=== PATIENT | male | born 1980 | race Caucasian/White ===

== ENCOUNTER 2018-01-24 03:10 | Observation (INO) ==
[2018-01-24] MEDS ORDERED: *HR* LORazepam 2 MG/ML VIAL IM ONE ×2 (03:37→04:24)
--- NOTE | 2018-01-24 03:57 | Emergency Department Note ---
Disposition Clinical Impression: Intractable seizure disorder Disposition: Admitted As Inpatient Condition: Good Referrals: NONE,PCP [Primary Care Provider] - Forms: ED Satisfaction Letter General Adult HPI - General Chief complaint: ED Seizure Stated complaint: multiple seizors Time Seen by Provider: 01/24/18 03:32 Source: family Mode of arrival: EMS Limitations: altered mental status Nursing Notes Reviewed: Yes Vital Signs Reviewed: Yes - History of Present Illness HPI Narrative: 37-year-old male with a history of epilepsy, hypertension, seizure disorder presents emergency department for status epilepticus. He is accompanied by his brother he states that over the last 2 days patient has had 4 seizures. Normal seizures for him are that he "spaces out for a few minutes" and then is slightly confused for no more than 2-3 minutes and is able to speak and is at his baseline. Tonight around 2 AM patient had another seizure except this time patient has been very anxious climbing around on bed, not following commands, is alert that is not able to follow any type of commands. Continue frequent sometimes A" having evaluated. Patient sees a neurologist Dr. Gant, is on Keppra and Lamictal for his seizures. According to brother he takes medications as prescribed. He states there is no alcohol or drugs house brother lives with patient. Mother does work outside the home and was at work prior to all the seizures started. Regular bowel mental status is possible he overdosed on medications, he does have a history of encephalopathy. And has an EEG that shows encephalopathy. Mother denies patient was ill prior to the start of this. States he was completely normal. 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 Pain Scale: 0 Improves with: nothing Worsens with: nothing Associated symptoms: Reports: denies other symptoms Treatments Prior to Arrival: none - Related Data Home Medications Medication Instructions Recorded Confirmed lamoTRIgine [Lamictal] 300 mg PO HS 11/18/15 11/18/15 Previous Rx's Medication Instructions Recorded levETIRAcetam [Keppra] 250 mg PO BID #60 tablet 11/18/15 LevETIRAcetam [Keppra] 500 mg PO DAILY #30 tablet 09/01/16 levETIRAcetam [Keppra] 250 mg PO BID #60 tablet 06/02/17 Allergies Allergy/AdvReac Type Severity Reaction Status Date / Time diphenhydramine Allergy See Verified 01/24/18 03:17 [From Triaminic Allergy] Comments Review of Systems: See HPI All systems ED: reviewed and negative except as stated. Review of Systems: As Per HPI Past Medical History - Past Medical History Attestation: Yes The following information was validated with the patient. Source: old records reviewed, obtained from family Medical history: Reports: seizures, other (encephalapathy) Psychiatric history: Reports: bipolar - Social History Smoking Status: Never smoker Smokeless Tobacco Status: No Alcohol use: Reports: none Drug use: Reports: none Physical Exam - General Limitations: altered mental status General appearance: alert, in no apparent distress, appears intoxicated - Head Head exam: atraumatic, normocephalic, normal inspection - Eye Eye exam: Present: PERRL. Absent: conjunctival injection - Neck Neck exam: Present: normal inspection, full ROM, trachea midline - Chest Chest inspection: Present: normal inspection, symmetric chest wall rise - Respiratory Respiratory exam: Present: normal lung sounds bilaterally - Cardiovascular Cardiovascular exam: Present: regular rate, normal rhythm, normal heart sounds - Abdominal Exam Abdominal exam: Present: soft, normal bowel sounds - Extremities Exam Extremities exam: Present: normal inspection. Absent: pedal edema - Expanded Lower Extremity Exam Neurovascular/Tendon exam: Present: normal capillary refill. Absent: pulse deficit - Neurological Exam Neurological exam: Present: alert - Expanded Neurological Exam Coma Scale Eye Opening: Spontaneous Coma Scale Motor Response: Localizes to Pain Coma Scale Verbal Response: None Coma Scale Total: 10 - Skin Skin exam: Present: warm, dry, intact, normal color Course Course Narrative: 37-year-old male with a history of epilepsy, hypertension, seizure disorder presents emergency department for status epilepticus. He is accompanied by his brother he states that over the last 2 days patient has had 4 seizures. Normal seizures for him are that he "spaces out for a few minutes" and then is slightly confused for no more than 2-3 minutes and is able to speak and is at his baseline. Tonight around 2 AM patient had another seizure except this time patient has been very anxious climbing around on bed, not following commands, is alert that is not able to follow any type of commands. Continue frequent sometimes A" having evaluated. Patient sees a neurologist Dr. Gant, is on Keppra and Lamictal for his seizures. According to brother he takes medications as prescribed. He states there is no alcohol or drugs house brother lives with patient. Mother does work outside the home and was at work prior to all the seizures started. Regular bowel mental status is possible he overdosed on medications, he does have a history of encephalopathy. And has an EEG that shows encephalopathy. Mother denies patient was ill prior to the start of this. States he was completely normal. Patient on bed with sporadic, and plan movements. Nonverbal, PEARRL, unable to follow commands. He does not appear to be postictal or in any type of seizure activity. His respirations are easy and even lungs are clear to auscultate heart rate tachycardia, afebrile. We will give Ativan 2 mg IM and reevaluate. - Reevaluation(s) Reevaluation #1: Patient is, however still continues with a sporadic movements. There is been no real change with any slightly, or. We will do another Ativan 2 mg and obtain a head CT. After Ativan Sandys ministered patient did attempt to hold still for lab draw and did fairly well, but he is still nonverbal and not able to follow to commands. We will get a head CT along with basic labs. Time: 04:50 Reevaluation #2: Patient has been calm her, attempting to follow correct commands. He is able to give me his name and birthday, unable to tell me where he is. Seems to be resting comfortably. UDS negative, urine without signs of UTI, small leukocytosis, phosphate 1.2. Head CT returned. We will replace phosphate with 0.25mmol/kg over the next 8 hours. No other acute change in physical assessment. He was slightly hypotensive earlier 90s over 60s, we did a 1 L fluid bolus, during a hypertensive area he was able to tell me his name and birthday. Rest vital signs remained stable. Improvement in hypotension during fluid resuscitation. Most likely hypertensive due to Ativan orders to keep him calm. Time: 05:58 Reevaluation #3: CT scan returns without acute changes, continue chronic health conditions of nasal cannula. Ammonia normal at 51, no signs of sepsis. Baseline mental status continues to improve, hypertension can use improved. We will treat hospitalist for admission for evaluation of altered mental status. Time: 06:23 Additional Reevaluation(s): Spoke with hospitalist who agrees for admission.--[id number] Vital Signs Temperature 0 F L 01/24/18 03:17 Pulse Rate 76 01/24/18 03:17 Respiratory Rate 20 01/24/18 03:17 Blood Pressure 138/79 01/24/18 03:17 O2 Sat by Pulse Oximetry 98 01/24/18 03:17 Temperature 98.0 F 01/24/18 04:23 Pulse Rate 96 01/24/18 06:20 Respiratory Rate 20 01/24/18 06:20 Blood Pressure 128/60 01/24/18 06:20 O2 Sat by Pulse Oximetry 96 01/24/18 06:20 Oxygen Delivery Oxygen Delivery Room Air Medical Decision Making - Medical Records Medical records reviewed: Yes I reviewed the patient's medical records. - Lab Data Lab results reviewed: Yes I reviewed the patient's lab results. Result diagrams: 01/24/18 04:32 01/24/18 04:32 Lab Results 01/24/18 01/24/18 01/24/18 Range/Units 04:32 04:32 04:32 WBC 16.7 H (4.3-11.1) K/mcL RBC 4.76 (4.19-5.50) M/mcL Hgb 13.9 (12.9-16.9) g/dL Hct 41.0 (37.5-50.1) % MCV 86.1 (83.0-100.0) fL MCH 29.2 (28.0-33.3) pg MCHC 33.9 (31.6-35.5) g/dL RDW 14.6 H (11.5-14.5) % Plt Count 358 (140-400) K/mcL MPV 10.3 (9.4-12.4) fL Immature Gran % 0.4 (0-4) % Seg Neutrophils % 88.4 % Lymphocytes % 5.9 % Monocytes % 4.8 % Eosinophils % 0.1 % Basophils % 0.4 % Neutrophils # 14.8 H (1.6-8.9) K/mcL Lymphocytes # 1.0 (0.6-4.6) K/mcL Monocytes # 0.8 (0.0-1.3) K/mcL Eosinophils # 0.0 (0.0-0.6) K/mcL Basophils # 0.1 (0.0-0.2) K/mcL Sodium 137 (136-145) mEq/L Potassium 3.7 (3.5-5.1) mEq/L Chloride 105 (98-107) mEq/L Carbon Dioxide 20 L (23-29) mEq/L BUN 14 (6-20) mg/dL Creatinine 1.04 (0.70-1.30) mg/dL Est GFR ( Amer) > 60 (> 60) Est GFR (Non-Af Amer) > 60 (> 60) BUN/Creatinine Ratio 13 (6-26) Glucose 183 H (70-105) mg/dL Calculated Osmolality 289 (280-300) Calcium 9.9 (8.6-10.3) mg/dL Phosphorus 1.2 L (2.7-4.5) mg/dL Magnesium 2.3 (1.6-2.6) mg/dL Total Bilirubin 1.0 (0.3-1.0) mg/dL AST 25 (13-39) Units/L ALT 38 (7-52) Units/L Alkaline Phosphatase 75 (34-104) Units/L Ammonia (16-53) mcmol/L Serum Total Protein 7.6 (6.4-8.9) g/dL Albumin 4.7 (3.5-5.7) g/dL Globulin 2.9 (2.4-3.5) g/dL Albumin/Globulin Ratio 1.6 (1.1-2.2) Urine Color (Yellow) Urine Clarity (Clear) Urine pH (5.0-8.0) pH Units Ur Specific [place] (1.010-1.025) Urine Protein (Neg-Trace) mg/dL Urine Glucose (UA) (Normal) mg/dL Urine Ketones (Negative) mg/dL Urine Blood (Negative) Urine Nitrite (Negative) Urine Bilirubin (Negative) Urine Urobilinogen (Normal) mg/dL Ur Leukocyte Esterase (Negative) Urine Microscopic RBC (0-3) per hpf Urine Microscopic WBC (0-3) per hpf Ur Squamous Epith Cells (None-Few) per lpf Urine Bacteria (None-Few) per hpf Hyaline Casts (None-Few) per lpf Urine Opiates Screen (Cltynr=049) ng/mL Ur Barbiturates Screen (Sdxjix=140) ng/mL Ur Phencyclidine Scrn (Cutoff=25) ng/mL Ur Amphetamines Screen (Oopahe=2205) ng/mL U Benzodiazepines Scrn (Wuvvwr=744) ng/mL Urine Cocaine Screen (Cutoff= 300) ng/mL U Marijuana (THC) Screen (Cutoff = 50) ng/mL Ethyl Alcohol < 10 (Less than 10) mg/dL 01/24/18 01/24/18 01/24/18 Range/Units 04:45 04:45 05:33 WBC (4.3-11.1) K/mcL RBC (4.19-5.50) M/mcL Hgb (12.9-16.9) g/dL Hct (37.5-50.1) % MCV (83.0-100.0) fL MCH (28.0-33.3) pg MCHC (31.6-35.5) g/dL RDW (11.5-14.5) % Plt Count (140-400) K/mcL MPV (9.4-12.4) fL Immature Gran % (0-4) % Seg Neutrophils % % Lymphocytes % % Monocytes % % Eosinophils % % Basophils % % Neutrophils # (1.6-8.9) K/mcL Lymphocytes # (0.6-4.6) K/mcL Monocytes # (0.0-1.3) K/mcL Eosinophils # (0.0-0.6) K/mcL Basophils # (0.0-0.2) K/mcL Sodium (136-145) mEq/L Potassium (3.5-5.1) mEq/L Chloride (98-107) mEq/L Carbon Dioxide (23-29) mEq/L BUN (6-20) mg/dL Creatinine (0.70-1.30) mg/dL Est GFR ( Amer) (> 60) Est GFR (Non-Af Amer) (> 60) BUN/Creatinine Ratio (6-26) Glucose (70-105) mg/dL Calculated Osmolality (280-300) Calcium (8.6-10.3) mg/dL Phosphorus (2.7-4.5) mg/dL Magnesium (1.6-2.6) mg/dL Total Bilirubin (0.3-1.0) mg/dL AST (13-39) Units/L ALT (7-52) Units/L Alkaline Phosphatase (34-104) Units/L Ammonia 51 (16-53) mcmol/L Serum Total Protein (6.4-8.9) g/dL Albumin (3.5-5.7) g/dL Globulin (2.4-3.5) g/dL Albumin/Globulin Ratio (1.1-2.2) Urine Color Yellow (Yellow) Urine Clarity Clear (Clear) Urine pH 7.0 (5.0-8.0) pH Units Ur Specific [place] 1.027 H (1.010-1.025) Urine Protein 30 H (Neg-Trace) mg/dL Urine Glucose (UA) Normal (Normal) mg/dL Urine Ketones Trace H (Negative) mg/dL Urine Blood Negative (Negative) Urine Nitrite Negative (Negative) Urine Bilirubin Negative (Negative) Urine Urobilinogen Normal (Normal) mg/dL Ur Leukocyte Esterase Negative (Negative) Urine Microscopic RBC 5-15 H (0-3) per hpf Urine Microscopic WBC 3-5 H (0-3) per hpf Ur Squamous Epith Cells Moderate H (None-Few) per lpf Urine Bacteria None Seen (None-Few) per hpf Hyaline Casts None Seen (None-Few) per lpf Urine Opiates Screen Negative (Jefrtb=850) ng/mL Ur Barbiturates Screen Negative (Qkitys=421) ng/mL Ur Phencyclidine Scrn Negative (Cutoff=25) ng/mL Ur Amphetamines Screen Negative (Hogmza=2031) ng/mL U Benzodiazepines Scrn Negative (Irtyef=114) ng/mL Urine Cocaine Screen Negative (Cutoff= 300) ng/mL U Marijuana (THC) Screen Negative (Cutoff = 50) ng/mL Ethyl Alcohol (Less than 10) mg/dL - Radiology Data Radiology results reviewed: Yes I reviewed the patient's radiology results.
[2018-01-24 04:47] LABS: Basophils # 0.1 K/mcL (0.0-0.2); Basophils % 0.4 %; Eosinophils % 0.1 %; Hemoglobin 13.9 g/dL (12.9-16.9); Immature Granulocytes % 0.4 % (0-4); Lymphocytes % 5.9 %; Mean Corpuscular HGB Conc 33.9 g/dL (31.6-35.5); Mean Corpuscular Hemoglobin 29.2 pg (28.0-33.3); Mean Corpuscular Volume 86.1 fL (83.0-100.0); Mean Platelet Volume 10.3 fL (9.4-12.4); Monocytes # 0.8 K/mcL (0.0-1.3); Monocytes % 4.8 %; Neutrophils # 14.8 K/mcL (1.6-8.9); Platelet Count 358 K/mcL (140-400); Red Blood Count 4.76 M/mcL (4.19-5.50); Red Cell Distribution Width 14.6 % (11.5-14.5); Segmented Neutrophils % 88.4 %
[2018-01-24 04:55] LABS: Bilirubin,Urine Negative (Negative); Blood,Urine Negative (Negative); Clarity,Urine Clear (Clear); Color,Urine Yellow (Yellow); Glucose,Urine (UA) Normal (Normal); Ketones,Urine Trace mg/dL (Negative); Leukocyte Esterase,Urine Negative (Negative); Nitrite,Urine Negative (Negative); Protein,Urine 30 mg/dL (Neg-Trace); Specific Gravity,Urine 1.027 (1.010-1.025); Urobilinogen,Urine Normal (Normal)
--- NOTE | 2018-01-24 04:56 | Emergency Department Note ---
Disposition Clinical Impression: Intractable seizure disorder Disposition: Admitted As Inpatient Condition: Good Referrals: NONE,PCP [Primary Care Provider] - Forms: ED Satisfaction Letter General Adult HPI - General Chief complaint: ED Seizure Stated complaint: multiple seizures Time Seen by Provider: 01/24/18 03:32 Source: family Mode of arrival: EMS Limitations: altered mental status - History of Present Illness Pain Scale: 0 Improves with: nothing Worsens with: nothing Associated symptoms: Reports: denies other symptoms Treatments Prior to Arrival: none - Related Data Home Medications Medication Instructions Recorded Confirmed lamoTRIgine [Lamictal] 300 mg PO HS 11/18/15 11/18/15 Previous Rx's Medication Instructions Recorded levETIRAcetam [Keppra] 250 mg PO BID #60 tablet 11/18/15 LevETIRAcetam [Keppra] 500 mg PO DAILY #30 tablet 09/01/16 levETIRAcetam [Keppra] 250 mg PO BID #60 tablet 06/02/17 Allergies Allergy/AdvReac Type Severity Reaction Status Date / Time diphenhydramine Allergy See Verified 01/24/18 03:17 [From Triaminic Allergy] Comments Past Medical History - Past Medical History Medical history: Reports: seizures, other (encephalapathy) Psychiatric history: Reports: bipolar - Social History Smoking Status: Never smoker Smokeless Tobacco Status: No Alcohol use: Reports: none Drug use: Reports: none Physical Exam - General Limitations: altered mental status General appearance: alert, in no apparent distress, appears intoxicated Course Vital Signs Temperature 0 F L 01/24/18 03:17 Pulse Rate 76 01/24/18 03:17 Respiratory Rate 20 01/24/18 03:17 Blood Pressure 138/79 01/24/18 03:17 O2 Sat by Pulse Oximetry 98 01/24/18 03:17 Temperature 98.0 F 01/24/18 04:23 Pulse Rate 96 01/24/18 06:20 Respiratory Rate 20 01/24/18 06:20 Blood Pressure 128/60 01/24/18 06:20 O2 Sat by Pulse Oximetry 96 01/24/18 06:20 Oxygen Delivery Oxygen Delivery Room Air Medical Decision Making - Lab Data Result diagrams: 01/24/18 04:32 01/24/18 04:32 Lab Results 01/24/18 01/24/18 01/24/18 Range/Units 04:32 04:32 04:32 WBC 16.7 H (4.3-11.1) K/mcL RBC 4.76 (4.19-5.50) M/mcL Hgb 13.9 (12.9-16.9) g/dL Hct 41.0 (37.5-50.1) % MCV 86.1 (83.0-100.0) fL MCH 29.2 (28.0-33.3) pg MCHC 33.9 (31.6-35.5) g/dL RDW 14.6 H (11.5-14.5) % Plt Count 358 (140-400) K/mcL MPV 10.3 (9.4-12.4) fL Immature Gran % 0.4 (0-4) % Seg Neutrophils % 88.4 % Lymphocytes % 5.9 % Monocytes % 4.8 % Eosinophils % 0.1 % Basophils % 0.4 % Neutrophils # 14.8 H (1.6-8.9) K/mcL Lymphocytes # 1.0 (0.6-4.6) K/mcL Monocytes # 0.8 (0.0-1.3) K/mcL Eosinophils # 0.0 (0.0-0.6) K/mcL Basophils # 0.1 (0.0-0.2) K/mcL Sodium 137 (136-145) mEq/L Potassium 3.7 (3.5-5.1) mEq/L Chloride 105 (98-107) mEq/L Carbon Dioxide 20 L (23-29) mEq/L BUN 14 (6-20) mg/dL Creatinine 1.04 (0.70-1.30) mg/dL Est GFR ( Amer) > 60 (> 60) Est GFR (Non-Af Amer) > 60 (> 60) BUN/Creatinine Ratio 13 (6-26) Glucose 183 H (70-105) mg/dL Calculated Osmolality 289 (280-300) Calcium 9.9 (8.6-10.3) mg/dL Phosphorus 1.2 L (2.7-4.5) mg/dL Magnesium 2.3 (1.6-2.6) mg/dL Total Bilirubin 1.0 (0.3-1.0) mg/dL AST 25 (13-39) Units/L ALT 38 (7-52) Units/L Alkaline Phosphatase 75 (34-104) Units/L Ammonia (16-53) mcmol/L Serum Total Protein 7.6 (6.4-8.9) g/dL Albumin 4.7 (3.5-5.7) g/dL Globulin 2.9 (2.4-3.5) g/dL Albumin/Globulin Ratio 1.6 (1.1-2.2) Urine Color (Yellow) Urine Clarity (Clear) Urine pH (5.0-8.0) pH Units Ur Specific [place] (1.010-1.025) Urine Protein (Neg-Trace) mg/dL Urine Glucose (UA) (Normal) mg/dL Urine Ketones (Negative) mg/dL Urine Blood (Negative) Urine Nitrite (Negative) Urine Bilirubin (Negative) Urine Urobilinogen (Normal) mg/dL Ur Leukocyte Esterase (Negative) Urine Microscopic RBC (0-3) per hpf Urine Microscopic WBC (0-3) per hpf Ur Squamous Epith Cells (None-Few) per lpf Urine Bacteria (None-Few) per hpf Hyaline Casts (None-Few) per lpf Urine Opiates Screen (Rapabr=011) ng/mL Ur Barbiturates Screen (Vmkgwx=627) ng/mL Ur Phencyclidine Scrn (Cutoff=25) ng/mL Ur Amphetamines Screen (Gnbkmi=5837) ng/mL U Benzodiazepines Scrn (Tbqydy=131) ng/mL Urine Cocaine Screen (Cutoff= 300) ng/mL U Marijuana (THC) Screen (Cutoff = 50) ng/mL Ethyl Alcohol < 10 (Less than 10) mg/dL 01/24/18 01/24/18 01/24/18 Range/Units 04:45 04:45 05:33 WBC (4.3-11.1) K/mcL RBC (4.19-5.50) M/mcL Hgb (12.9-16.9) g/dL Hct (37.5-50.1) % MCV (83.0-100.0) fL MCH (28.0-33.3) pg MCHC (31.6-35.5) g/dL RDW (11.5-14.5) % Plt Count (140-400) K/mcL MPV (9.4-12.4) fL Immature Gran % (0-4) % Seg Neutrophils % % Lymphocytes % % Monocytes % % Eosinophils % % Basophils % % Neutrophils # (1.6-8.9) K/mcL Lymphocytes # (0.6-4.6) K/mcL Monocytes # (0.0-1.3) K/mcL Eosinophils # (0.0-0.6) K/mcL Basophils # (0.0-0.2) K/mcL Sodium (136-145) mEq/L Potassium (3.5-5.1) mEq/L Chloride (98-107) mEq/L Carbon Dioxide (23-29) mEq/L BUN (6-20) mg/dL Creatinine (0.70-1.30) mg/dL Est GFR ( Amer) (> 60) Est GFR (Non-Af Amer) (> 60) BUN/Creatinine Ratio (6-26) Glucose (70-105) mg/dL Calculated Osmolality (280-300) Calcium (8.6-10.3) mg/dL Phosphorus (2.7-4.5) mg/dL Magnesium (1.6-2.6) mg/dL Total Bilirubin (0.3-1.0) mg/dL AST (13-39) Units/L ALT (7-52) Units/L Alkaline Phosphatase (34-104) Units/L Ammonia 51 (16-53) mcmol/L Serum Total Protein (6.4-8.9) g/dL Albumin (3.5-5.7) g/dL Globulin (2.4-3.5) g/dL Albumin/Globulin Ratio (1.1-2.2) Urine Color Yellow (Yellow) Urine Clarity Clear (Clear) Urine pH 7.0 (5.0-8.0) pH Units Ur Specific [place] 1.027 H (1.010-1.025) Urine Protein 30 H (Neg-Trace) mg/dL Urine Glucose (UA) Normal (Normal) mg/dL Urine Ketones Trace H (Negative) mg/dL Urine Blood Negative (Negative) Urine Nitrite Negative (Negative) Urine Bilirubin Negative (Negative) Urine Urobilinogen Normal (Normal) mg/dL Ur Leukocyte Esterase Negative (Negative) Urine Microscopic RBC 5-15 H (0-3) per hpf Urine Microscopic WBC 3-5 H (0-3) per hpf Ur Squamous Epith Cells Moderate H (None-Few) per lpf Urine Bacteria None Seen (None-Few) per hpf Hyaline Casts None Seen (None-Few) per lpf Urine Opiates Screen Negative (Xevoci=596) ng/mL Ur Barbiturates Screen Negative (Khdjug=478) ng/mL Ur Phencyclidine Scrn Negative (Cutoff=25) ng/mL Ur Amphetamines Screen Negative (Upmdap=0430) ng/mL U Benzodiazepines Scrn Negative (Hucjwu=436) ng/mL Urine Cocaine Screen Negative (Cutoff= 300) ng/mL U Marijuana (THC) Screen Negative (Cutoff = 50) ng/mL Ethyl Alcohol (Less than 10) mg/dL Attestation Statement - Attestation Attestation: I, Julian Alas MD, personally evaluated this patient and discussed their management with the midlevel provicer, PAC/VAT OVERHAULER. I reviewed the midlevel provider 's note and agree with the documented findings, medical decision making, and plan of care. 37-year-old male with history of seizure disorder presents to the emergency department with his brother complaining that he has had multiple seizures over the past day or 2. He states he thinks he has had 4 or 5 in the last 24 hours. Initially the seizures were like his typical seizures however over the past several hours he has had a few seizures but does not seem to recover from them. He is alert but remains confused and unable to follow commands. He is restless and thrashing around. Nonverbal. He has not been ill otherwise. On examination patient is a well-developed well-nourished male in no acute distress. He is alert but nonverbal and will not follow commands. There is no cyanosis or diaphoresis. Breath sounds are clear and equal bilaterally. Heart regular with a mild tachycardia. Abdomen is soft with normal bowel sounds. No apparent tenderness. No tympany or distention. No gross focal neurological deficits. Labs reviewed. Chest x-ray negative. Head CT negative. The hospitalist, Dr. Sanon, was consulted and accepted admission of the patient.
[2018-01-24 04:57] LABS: Bacteria,Urine None Seen per hpf (None-Few); Hyaline Casts,Urine None Seen per lpf (None-Few); Squamous Epithelial Cell,Urine Moderate per lpf (None-Few)
[2018-01-24 05:05] LABS: Amphetamine Screen,Urine Negative ng/mL (Cutoff=1000); Barbiturate Screen,Urine Negative ng/mL (Cutoff=200); Benzodiazepines Screen,Urine Negative ng/mL (Cutoff=200); Cannabinoid Screen,Urine Negative ng/mL (Cutoff = 50); Cocaine Screen,Urine Negative ng/mL (Cutoff= 300); Opiate Screen,Urine Negative ng/mL (Cutoff=300); Phencyclidine Screen,Urine Negative ng/mL (Cutoff=25)
[2018-01-24 05:27] LABS: Alanine Aminotransferase 38 Units/L (7-52); Albumin 4.7 g/dL (3.5-5.7); Albumin/Globulin Ratio 1.6 (1.1-2.2); Alkaline Phosphatase 75 Units/L (34-104); Aspartate Amino Transferase 25 Units/L (13-39); BUN/Creatinine Ratio 13 (6-26); Blood Urea Nitrogen 14 mg/dL (6-20); Calcium 9.9 mg/dL (8.6-10.3); Carbon Dioxide 20 mEq/L (23-29); Globulin 2.9 g/dL (2.4-3.5); Glucose 183 mg/dL (70-105); Magnesium 2.3 mg/dL (1.6-2.6); Phosphorous 1.2 mg/dL (2.7-4.5); Total Protein 7.6 g/dL (6.4-8.9); eGFR For African Americans > 60 (> 60); eGFR For Non-African Americans > 60 (> 60)
[2018-01-24] MEDS ORDERED: 0.9 % Sodium Chloride 1,000 ML IVC ONE (05:30)
[2018-01-24] MEDS ORDERED: 0.9 % Sodium Chloride 1,000 ML ONE (05:30)
[2018-01-24 05:51] LABS: Chloride 105 mEq/L (98-107); Osmolality,Calculated 289 (280-300); Potassium 3.7 mEq/L (3.5-5.1); Sodium 137 mEq/L (136-145)
[2018-01-24] MEDS ORDERED: Sodium Phosphate 20 MMOL in 0.9 % Sodium Chloride 250 ML IVPB ONE (05:52)
[2018-01-24] MEDS ORDERED: *HR* LORazepam 2 MG/ML VIAL IVP PRN (06:44)
--- NOTE | 2018-01-24 07:48 | Internal Med History&Physical ---
Date of Encounter: 01/24/18 Time of Encounter: 07:44 Assessment and Plan (1) HTN (hypertension) Current visit: Yes Status: Chronic Chronic and well controlled Qualifiers: Hypertension type: essential hypertension Qualified Code(s): I10 - Essential (primary) hypertension (2) Leukocytosis Current visit: Yes Status: Acute Most likely reactive chest x-ray does not show pneumonia UA is unremarkable Qualifiers: Leukocytosis type: bandemia Qualified Code(s): D72.825 - Bandemia (3) Intractable seizure disorder Current visit: Yes Status: Acute Patient with seizure disorder with multiple breakthrough seizures head CT is unremarkable will consult neurology for follow up Internal Medicine - H&P: HPI Chief complaint: seizures Admitted From: Emergency Dept Plans for Post Hospital Care: Home History of present illness: Mr. Ivory is a 37 year old male Patient history of seizure disorder, hypertension, patient was brought in by brother following multiple seizure episodes. The patient had about 4-5 seizure episode in the last 24 hours . brought into the emergency room confused on arrival and unable to follow commands was given 2 mg of Ativan evaluation was unremarkable head CT was negative patient follows with Dr. Gant neurology and he was on Keppra and Lamictal. This morning when i saw him patient is awake , alert able to answer questions appropriately will be admitted for follow-up treatment consult neurology. Past Med Surg Social Fam HX - Past Medical History Medical history: hypertension, seizures, other (encephalapathy) Psychiatric history: bipolar - Social History Smoking Status: Never smoker Smokeless Tobacco Status: No Alcohol use: none Drug use: none Internal Medicine - H&P: Meds lamoTRIgine [Lamictal] 300 mg PO HS 11/18/15 [History] levETIRAcetam [Keppra] 250 mg PO BID #60 tablet 11/18/15 [Rx] LevETIRAcetam [Keppra] 500 mg PO DAILY #30 tablet 09/01/16 [Rx] levETIRAcetam [Keppra] 250 mg PO BID #60 tablet 06/02/17 [Rx] 3 Allergy/AdvReac Type Severity Reaction Status Date / Time diphenhydramine Allergy See Verified 01/24/18 03:17 [From Triaminic Allergy] Comments All Systems PM: A 10-system review of systems was performed and is negative for pertinent findings except as documented above in the HPI. - Constitutional Constitutional: no chills, no fever(s), no night sweats - EENT Eyes: no change in vision, no discharge, no pain, no photophobia Ears: no ear discharge, no ear pain, no tinnitus Nose, mouth and throat: no dysphagia, no nasal discharge, no neck pain, no sore throat - Cardiovascular Cardiovascular ROS IM: no chest pain, no diaphoresis, no dyspnea, no lightheadedness, no palpitations, no syncope - Respiratory Respiratory: no cough, no dyspnea, no wheezing, no excessive phlegm production - Gastrointestinal Gastrointestinal: no abdominal pain, no diarrhea, no hematemesis, no hematochezia, no melena, no nausea, no vomiting - Musculoskeletal Musculoskeletal ROS IM: no numbness, no tingling - Integumentary Integumentary IM: no rash, no unusual bruising - Neurological Neurological ROS: no confusion, no convulsions, no focal weakness, no numbness, no tingling, no tremor(s) - Hematologic/Lymphatic Hematologic/Lymphatic: no easy bruising - Constitutional Vitals: Temp Pulse Resp BP Pulse Ox 98.0 F 106 20 127/98 97 01/24/18 04:23 01/24/18 07:33 01/24/18 07:33 01/24/18 07:33 01/24/18 07:33 - Head Head exam: Present: atraumatic, normocephalic - Eye Eye exam: Present: PERRL, conjuntiva pink, sclera anicteric Pupils: Present: PERRL - Neck Neck exam general surgery: Present: supple, trachea midline. Absent: lymphadenopathy - Respiratory Respiratory exam: Present: CTAB. Absent: accessory muscle use, rales, rhonchi, wheezes - Cardiovascular Cardiovascular exam: Present: RRR, +S1, +S2. Absent: diastolic murmur, gallop, rubs, systolic murmur - GI/Abdominal GI/Abdominal exam: Present: normal bowel sounds, soft, no peritoneal signs. Absent: distended, tenderness - Extremities Exam Extremities exam: Present: warm, radial pulses palpable and symmetrical. Absent : calf tenderness, cyanotic, pedal edema - Neurological Exam Neurological exam: Present: CN II-XII intact, oriented X3, no focal deficits. Absent: pronater drift, facial droop, speech deficit - Skin Skin exam: Present: dry, intact Internal Med - H&P Results - Labs CBC & Chem 7: 01/24/18 04:32 01/24/18 04:32 Labs: Short CBC 01/24/18 Range/Units 04:32 WBC 16.7 H (4.3-11.1) K/mcL Hgb 13.9 (12.9-16.9) g/dL Hct 41.0 (37.5-50.1) % Plt Count 358 (140-400) K/mcL Neutrophils # 14.8 H (1.6-8.9) K/mcL BMP 01/24/18 04:32 Sodium 137 Potassium 3.7 Chloride 105 Carbon Dioxide 20 L BUN 14 Creatinine 1.04 Glucose 183 H Calcium 9.9 Liver Function 01/24/18 Range/Units 04:32 Total Bilirubin 1.0 (0.3-1.0) mg/dL AST 25 (13-39) Units/L ALT 38 (7-52) Units/L Alkaline Phosphatase 75 (34-104) Units/L Albumin 4.7 (3.5-5.7) g/dL Urine 01/24/18 Range/Units 04:45 Urine Color Yellow (Yellow) Urine Clarity Clear (Clear) Urine pH 7.0 (5.0-8.0) pH Units Ur Specific [place] 1.027 H (1.010-1.025) Urine Protein 30 H (Neg-Trace) mg/dL Urine Glucose (UA) Normal (Normal) mg/dL - Impressions ITS Impressions Head CT 01/24/18 04:34 IMPRESSION: No acute intracranial abnormality. Unchanged calcification in the basal ganglia and cerebellar hemispheres which can be seen in the setting of calcium metabolism disorders such as Fahr disease. D/ / Tadeo Short MD / Tadeo Short MD Interpreting Provider: Tadeo Short MD Chest X-Ray 01/24/18 06:22 IMPRESSION: No radiographic evidence of acute cardiopulmonary disease. D/ / Fab Amaya / Fab Amaya Interpreting Provider: Fab Amaya
[2018-01-24] MEDS ORDERED: traMADol 50 MG TABLET PO PRN (07:52)
[2018-01-24] MEDS ORDERED: Acetaminophen 325 MG TABLET PO PRN (07:52)
[2018-01-24] MEDS ORDERED: Naloxone 0.4 MG/ML INJ IVP PRN (07:52)
--- NOTE | 2018-01-24 09:42 | Electrocardiograph Report ---
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
[2018-01-24] MEDS: levETIRAcetam 250 MG TABLET PO SCH ×2 (11:28→21:03)
[2018-01-24] MEDS: 0.9 % Sodium Chloride 1,000 ML IVC SCH ×2 (11:29→21:07)
[2018-01-24] MEDS: lamoTRIgine 100 MG TABLET PO SCH ×2 (11:29→21:03)
--- NOTE | 2018-01-24 16:51 | Neurology - Consult Note ---
Date of Encounter: 01/25/18 Time of Encounter: 16:50 Assessment and Plan (1) Intractable seizure disorder Status: Acute This patient who apparently has an history of seizure for a long time has been followed up by neurology had few breakthrough seizures without any focal findings on his current neurological examination patient seems to be back to his baseline. He is been taking his medication on a regular basis so far no obvious sign of infection or any other metabolic abnormalities. continue on KEPPRA and LAMICTAL , home dose, patient should remain on seizure precautions and driving restrictions ok to DC from neuro stand point, f/u in 2.3 weeks History of Present Illness HPI: Mr. Ivory is a 37 year old male with history of seizure disorder, hypertension , patient was brought in by brother following multiple seizure episodes. The patient had about 4-5 seizure episode in the last 24 hours . brought into the emergency room confused on arrival and unable to follow commands was given 2 mg of Ativan , CT was negative patient follows with Dr. Gant neurology and he was on Keppra and Lamictal. Vision is been taking his medication on a regular basis he denies skipping that dose he did mention that he has noticed breakthrough seizures whenever he takes generic Lamictal he would like to be on brand lamotrigine. He denies any further seizures now seem to be doing better Past Med Surg Social Fam HX - Past Medical History Medical history: hypertension, seizures, other Psychiatric history: bipolar - Social History Smoking Status: Never smoker Smokeless Tobacco Status: No Alcohol use: none Drug use: none Medications and Allergies lamoTRIgine [Lamictal] 250 mg PO QAM 11/18/15 [History] DiphenhydraMINE [Benadryl] 25 mg PO Q6H PRN 01/24/18 [History] LevETIRAcetam [Keppra] 500 mg PO BID 01/24/18 [History] lamoTRIgine [Lamotrigine] 300 mg PO 1500,2100 01/24/18 [History] 3 Allergy/AdvReac Type Severity Reaction Status Date / Time diphenhydramine Allergy See Verified 01/24/18 03:17 [From Triaminic Allergy] Comments All Systems: The remainder of the systems were reviewed and are negative Physical Examination - Vital Signs Vital Signs: Initial Vital Signs Temp Pulse Resp BP Pulse Ox 0 F L 76 20 138/79 98 01/24/18 03:17 01/24/18 03:17 01/24/18 03:17 01/24/18 03:17 01/24/18 03:17 - Constitutional General appearance: comfortable - Neurologic Detailed motor examination: full strength in all major muscle groups Motor examination - right side: 5/5: deltoids, biceps, triceps, wrist flexion, wrist extension, riveter, hip flexors, tibialis Anterior, quadriceps, toe extension (EHL), plantarflexion Motor examination - left side: 5/5: deltoids, biceps, triceps, wrist flexion, wrist extension, hip flexors, riveter, quadriceps, tibialis Anterior, toe extension (EHL), plantarflexion Detailed sensory examination: intact Reflexes: Biceps: 1+, Triceps: 1+, Brachioradialis: 1+, Patella: 1+, Achilles: 1 + Mental Status Examination: awake, alert, oriented to person, oriented to place, oriented to time, follows commands appropriately, answers questions appropriately, no agnosia, no aphasia, no aproxia Cranial nerve examination: PERRL, EOMI, visual cole intact, corneal reflexes brisk symmetrically, sensory to face intact, mastication intact, no facial asymmetry is present, no dysarthria, hearing is intact symmetrically, soft palate elevates bilaterally upon phonation, gag reflex intact, flexes SCM and trapezius muscles symmetrically with full power, tongue protrudes midline, no atrophy or facial fasiculations present Cerebellar examination: no dysmetria, performs finger to nose and heel to william symmetrically without ataxia, no gait ataxia, no truncal ataxia, no difficulty with rapid alternating movements Results - Laboratory Findings CBC and BMP: 01/25/18 05:13 01/25/18 05:13 Abnormal lab findings: Abnormal lab results WBC 16.7 K/mcL (4.3-11.1) H 01/24/18 04:32 RDW 14.6 % (11.5-14.5) H 01/24/18 04:32 Neutrophils # 14.8 K/mcL (1.6-8.9) H 01/24/18 04:32 Carbon Dioxide 20 mEq/L (23-29) L 01/24/18 04:32 Glucose 183 mg/dL (70-105) H 01/24/18 04:32 Phosphorus 1.2 mg/dL (2.7-4.5) L 01/24/18 04:32 Ur Specific [place] 1.027 (1.010-1.025) H 01/24/18 04:45 Urine Protein 30 mg/dL (Neg-Trace) H 01/24/18 04:45 Urine Ketones Trace mg/dL (Negative) H 01/24/18 04:45 Urine Microscopic RBC 5-15 per hpf (0-3) H 01/24/18 04:45 Urine Microscopic WBC 3-5 per hpf (0-3) H 01/24/18 04:45 Ur Squamous Epith Cells Moderate per lpf (None-Few) H 01/24/18 04:45 - Diagnostic Findings Additional findings: CT of the head No acute intracranial abnormality. Unchanged calcification in the basal ganglia and cerebellar hemispheres which can be seen in the setting of calcium metabolism disorders such as Fahr disease. Consult Discharge Plan - Plan Instructions: Epilepsy (DC) Referrals: NONE,PCP [Primary Care Provider] -
[2018-01-25 05:29] LABS: Mean Corpuscular HGB Conc 33.6 g/dL (31.6-35.5); Mean Corpuscular Hemoglobin 29.7 pg (28.0-33.3); Mean Corpuscular Volume 88.2 fL (83.0-100.0); Mean Platelet Volume 10.2 fL (9.4-12.4); Platelet Count 274 K/mcL (140-400); Red Blood Count 4.08 M/mcL (4.19-5.50); Red Cell Distribution Width 14.8 % (11.5-14.5)
[2018-01-25 05:30] LABS: Hemoglobin 12.1 g/dL (12.9-16.9)
[2018-01-25 05:54] LABS: Alanine Aminotransferase 30 Units/L (7-52); Albumin 3.6 g/dL (3.5-5.7); Albumin/Globulin Ratio 1.4 (1.1-2.2); Alkaline Phosphatase 51 Units/L (34-104); Aspartate Amino Transferase 23 Units/L (13-39); BUN/Creatinine Ratio 13 (6-26); Bilirubin,Total 0.8 mg/dL (0.3-1.0); Blood Urea Nitrogen 11 mg/dL (6-20); Calcium 8.5 mg/dL (8.6-10.3); Carbon Dioxide 24 mEq/L (23-29); Chloride 110 mEq/L (98-107); Chol/HDL Ratio 5.4 (0-4.9); Cholesterol 158 mg/dL (< 200); Globulin 2.6 g/dL (2.4-3.5); Glucose 93 mg/dL (70-105); HDL Cholesterol 29 mg/dL (40-59); LDL Cholesterol,Calculated 117 mg/dL (0-99); Magnesium 2.3 mg/dL (1.6-2.6); Osmolality,Calculated 287 (280-300); Potassium 3.7 mEq/L (3.5-5.1); Sodium 139 mEq/L (136-145); Total Protein 6.2 g/dL (6.4-8.9); Triglycerides 60 mg/dL (< 150); eGFR For African Americans > 60 (> 60); eGFR For Non-African Americans > 60 (> 60)
[2018-01-25] MEDS: lamoTRIgine 100 MG TABLET PO SCH (08:05)
[2018-01-25] MEDS: levETIRAcetam 250 MG TABLET PO SCH (08:06)
[2018-01-25 11:25] VITALS: BP 157/103
--- NOTE | 2018-01-25 14:22 | Discharge Summary ---
- NOTES TO OUTPATIENT PROVIDER Notes to Outpatient Provider: Follow-up Neurology 2-3 weeks. Orders not resulted at time of discharge: Pending orders 01/24/18 17:02 Keppra (Levetiracetam) Routine Date of Encounter: 01/25/18 Time of Encounter: 14:20 - Discharge Diagnosis (1) Intractable seizure disorder Priority: Primary Status: Acute (2) Leukocytosis Priority: Secondary Status: Acute Qualifiers: Leukocytosis type: bandemia Qualified Code(s): D72.825 - Bandemia (3) HTN (hypertension) Priority: Secondary Status: Chronic Qualifiers: Hypertension type: essential hypertension Qualified Code(s): I10 - Essential (primary) hypertension Hospital course: Mr. Ivory is a 37 year old male with history of seizure disorder, hypertension, patient was brought in by brother following multiple seizure episodes. The patient had about 4-5 seizure episode in the last 24 hours. Brought into the emergency room confused on arrival and unable to follow commands was given 2 mg of Ativan. Evaluation was unremarkable head CT was negative patient follows with Dr. Gant neurology and he was on Keppra and Lamictal. Patient evaluated and did return to normal mental status. Neurology was consulted. After evaluation it was okay to discharge from Neurology standpoint with follow- up in 2-3 weeks. Lamictal and Keppra were resumed at home doses. He was discharged home in stable condition. - Time Spent with Patient Total time spent providing and/or coordinating discharge services: - Discharge Medications Home Medications: lamoTRIgine [Lamictal] 250 mg PO QAM 11/18/15 [History] DiphenhydraMINE [Benadryl] 25 mg PO Q6H PRN 01/24/18 [History] LevETIRAcetam [Keppra] 500 mg PO BID 01/24/18 [History] lamoTRIgine [Lamotrigine] 300 mg PO 1500,2100 01/24/18 [History] Allergies/Adverse Reactions: 3 Allergy/AdvReac Type Severity Reaction Status Date / Time diphenhydramine Allergy See Verified 01/24/18 03:17 [From Triaminic Allergy] Comments Date of admission: 01/24/18 10:59 Primary care physician: PCP NONE Consults: 01/24/18 11:48 Consult to Bagger And Stock Handler Helper [CONS] Routine Reason for SW Consult: Need for services at home, caregiver requests assistance. 01/24/18 12:12 Consult to Nutrition [CONS] Routine Comment: Consulting Provider: NUTRITION Reason for Dietary Consult: MST Score 01/24/18 12:14 PT [Consult to Physical Therapy] [CONS] Routine Comment: Evaluate, develop and implement POC Reason for Consult: unsteady gait, need possible placement after d/c Does patient have active BEDREST order?: No Is patient medically & hemodynamically stable?: Yes Discharging clinician: Anel Denton - Constitutional Vitals: Temp Pulse Resp BP Pulse Ox 98 F 95 12 157/103 96 01/25/18 11:24 01/25/18 11:24 01/25/18 11:24 01/25/18 11:24 01/25/18 11:24 - Head Head exam: Present: atraumatic, normocephalic - Eye Eye exam: Present: PERRL, conjuntiva pink, sclera anicteric Pupils: Present: PERRL - Neck Neck exam general surgery: Present: supple, trachea midline. Absent: lymphadenopathy - Respiratory Respiratory exam: Present: CTAB. Absent: accessory muscle use, rales, rhonchi, wheezes - Cardiovascular Cardiovascular exam: Present: RRR, +S1, +S2. Absent: diastolic murmur, gallop, rubs, systolic murmur - GI/Abdominal GI/Abdominal exam: Present: normal bowel sounds, soft, no peritoneal signs. Absent: distended, tenderness - Extremities Exam Extremities exam: Present: warm, radial pulses palpable and symmetrical. Absent : calf tenderness, cyanotic, pedal edema - Neurological Exam Neurological exam: Present: CN II-XII intact, oriented X3, no focal deficits. Absent: pronater drift, facial droop, speech deficit - Skin Skin exam: Present: dry, intact - Patient Status Disposition: Home Health Service Condition: Good Functional capacity at discharge: independent ambulation Overall status at discharge: patient is back to baseline - Discharge Instructions Follow Up With: NONE,PCP [Primary Care Provider] - - Diet and Activity Activity: increase activity as tolerated Diet: advance to your usual diet, low fat, low cholesterol
--- NOTE | 2018-01-25 14:29 | Physician Discharge Referral ---
Home Health/Hosp Referral Info Transfer to: Home Health Provider in Charge Post Discharge: PCP - Diagnosis (1) Intractable seizure disorder Priority: Primary Status: Acute (2) Leukocytosis Priority: Secondary Status: Acute (3) HTN (hypertension) Priority: Secondary Status: Chronic - Respiratory Orders Smoking Cessation: Smoking cessation has been advised. For more information, call the [place] Tobacco Quit Line at 8-123-BYEK-NOW. - Services Needed Following services are medically necessary services: Physical Therapy - Transfer Medications Home Medications: lamoTRIgine [Lamictal] 250 mg PO QAM 11/18/15 [History] DiphenhydraMINE [Benadryl] 25 mg PO Q6H PRN 01/24/18 [History] LevETIRAcetam [Keppra] 500 mg PO BID 01/24/18 [History] lamoTRIgine [Lamotrigine] 300 mg PO 1500,2100 01/24/18 [History] Allergies/Adverse Reactions: 3 Allergy/AdvReac Type Severity Reaction Status Date / Time diphenhydramine Allergy See Verified 01/24/18 03:17 [From Triaminic Allergy] Comments Certification: Further, I certify that my clinical findings support that this patient is homebound (i.e. absences from home require considerable and taxing effort and are for medical reasons or protestant services or infrequently or short duration when for other reasons) because: Homebound Reason: Patient requires assistance of a person or device to safely leave home Attestation: My signature below is to certify that this patient is under my care and that I, or nurse practitioner, or a physician's bilingual teacher assistant working with me, has a face-to -face encounter with this patient.
[2018-01-25] MEDS ORDERED: lamoTRIgine 100 MG TABLET PO SCH (15:00)
[2018-01-26] MEDS ORDERED: lamoTRIgine 100 MG TABLET PO SCH (09:00)
[2018-01-26 10:32] LABS: Keppra (Levetiracetam) <2 ug/mL (12-46); Lamictal 5.7 ug/mL (2.5-15.0)
== END 2018-01-25 15:34 | disposition home health service (06) ==
LOC: 3ANU 03:10 → EMEROO 03:10 → 3ANU 11:13
PROVIDERS: ADMIT Internal Medicine Cardiovascular Disease; ATTEND Student in an Organized Health Care Education/Training Program